=== PATIENT | female | born 1970 | race Two or more races ===

== ENCOUNTER 2021-07-29 11:08 | Emergency (ER) | payer SELFPAY ==
[~2021-07-29] VITALS: Ht 162.6 cm; Wt 79.5 kg
[2021-07-29] MEDS ORDERED: AMOXICILLIN/K CLAV 875/125MG TABLET. PO ONE (13:15)
[2021-07-29] MEDS ORDERED: TETRACAINE 0.5% OPHTH SOLUTION 4ML BOTTLE. OD ONE (13:15)
[2021-07-29] MEDS ORDERED: HYDROcodone/APAP 5/325MG 1 TAB TABLET PO ONE (13:15)
[2021-07-29] MEDS ORDERED: DIPH,PERTUSS(ACELL),TET VAC/PF 0.5 ML SYRINGE. VAX IM ONE (13:15)
[2021-07-29] MEDS ORDERED: FLUORESCEIN OPHTH TEST STRIP. OD ONE (13:15)
[2021-07-29] MEDS ORDERED: CONTRAST GIVEN. MC PRN (15:00)
[2021-07-29] MEDS ORDERED: IOHEXOL 300 MG/ML 100ML VIAL. IV ONE (15:00)
[2021-07-29 15:01] LABS: BASO # 0.1 x10^3/uL (0.0-0.2); BASO % 1 % (0-3); EOS # 0.1 x10^3/uL (0.0-0.7); EOS % 1 % (0-3); HEMATOCRIT 46.5 % (36.0-47.0); HEMOGLOBIN 15.7 g/dL (12.0-15.5); LYMPH # 2.6 x10^3/uL (1.0-4.8); LYMPH % 21 % (24-48); MEAN CORPUSCULAR HEMOGLOBIN 32 pg (25-35); MEAN CORPUSCULAR HGB CONC 34 g/dL (31-37); MEAN CORPUSCULAR VOLUME 94 fL (79-100); MONO # 0.5 x10^3/uL (0.0-1.1); MONO % 4 % (0-9); NEUT # 9.4 x10^3/uL (1.8-7.7); NEUT % 74 % (31-73); PLATELET COUNT 286 x10^3/uL (140-400); RED BLOOD COUNT 4.97 x10^6/uL (3.50-5.40); RED CELL DISTRIBUTION WIDTH 13.4 % (11.5-14.5); WHITE BLOOD COUNT 12.8 x10^3/uL (4.0-11.0)
[2021-07-29 15:17] LABS: CALCIUM 9.2 mg/dL (8.5-10.1); CREATININE 0.5 mg/dL (0.6-1.0); GFR 130.6; POTASSIUM 5.1 mmol/L (3.5-5.1)
[2021-07-29 15:28] LABS: ALBUMIN 4.4 g/dL (3.4-5.0); C-REACTIVE PROTEIN 7.3 mg/L (0-3.3); TOTAL BILIRUBIN 0.6 mg/dL (0.2-1.0); TOTAL PROTEIN 8.6 g/dL (6.4-8.2)
--- NOTE | 2021-07-29 16:02 | RAD ---
EXAM: CT maxillofacial bones without contrast INDICATION: Periorbital cellulitis with right facial mass COMPARISON: CT head 06/24/2021 TECHNIQUE: Axial CT imaging through the maxillofacial bones after administration of 70 mL Isovue-300 intravenous contrast. Sagittal and coronal reformats were obtained. One or more of the following individualized dose reduction techniques were utilized for this examinat ion: 1. Automated exposure control 2. Adjustment of the mA and/or kV according to patient size 3. Use of iterative reconstruction technique. FINDINGS: There is no acute fracture of the facial bones. Paranasal sinuses and mastoid air cells are clear. Te mporomandibular alignment is normal. There is a 1.4 x 1.4 cm hypodense mass with thin peripheral enha ncement at the medial right orbit involving the nasolacrimal duct, likely a dacryocystocele. This has increased in size from 06/24/2021 where it measured about 9 x 9 mm. The orbits are otherwise normal i n appearance. Globes are intact. Visualized intracranial contents are remarkable. Very mild right per iorbital soft tissue swelling. IMPRESSION: 1.4 x 1.4 cm hypodense mass with thin peripheral enhancement at the medial right orbit in volving the nasolacrimal duct. This was present on 06/24/2021 but has increased in size. This favors a n infected dacryocystocele. Electronically signed by: Sonja Phelan MD (07/29/2021 4:00 PM) [id number]
--- NOTE | 2021-07-29 16:08 | PHYS DOC ---
Past Medical History Past Surgical History: No Surgical History Smoking Status: Never Smoker Alcohol Use: None General Adult EDM: Chief Complaint: EYE PROBLEMS HPI: HPI: Patient is a 50-year-old patient complains of pain and swelling to the right eye for the past 2 days. Patient denies injury, states her right ear hurts as well, denies throat pain, nasal or chest congestion, denies chest pains. Denies recent fever or chills, denies nausea, vomiting, diarrhea. Patient reports some blurriness from her right eye. Patient reports her last tetanus immunization was greater than 5 years ago. Patient denies other illnesses or physical co mplaints or physical concerns. Patient states she does not take prescription medications at home. Patient denies allergies to medications. Review of Systems: Review of Systems: 14 body systems of review of systems have been reviewed. See HPI for pertinent positives and negative responses, otherwise all other systems are negative, nonpertinent or noncontributory. Constitutional: Negative except as outlined in HPI above. Skin: Negative except as outlined in HPI above. Eyes: Negative except as outlined in HPI above. HENT: Negative except as outlined in HPI above. Respiratory: Negative except as outlined in HPI above. Cardiovascular: Negative except as outlined in HPI above. GI: Negative except as outlined in HPI above. : Negative except as outlined in HPI above. Musculoskeletal: Negative except as outlined in HPI above. Integument: Negative except as outlined in HPI above. Neurologic: Negative except as outlined in HPI above. Endocrine: Negative except as outlined in HPI above. Lymphatic: Negative except as outlined in HPI above. Psychiatric: Negative except as outlined in HPI above. Heart Score: C/O Chest Pain: No Risk Factors: Risk Factors: DM, Current or recent (<one month) smoker, HTN, HLP, family history of CAD, obesity. Risk Scores: Score 0 - 3: 2.5% MACE over next 6 weeks - Discharge Home Score 4 - 6: 20.3% MACE over next 6 weeks - Admit for Clinical Observation Score 7 - 10: 72.7% MACE over next 6 weeks - Early Invasive Strategies Current Medications: Current Medications Medications (Trade) Dose Ordered Sig/Thad Start Time Stop Time Status Last Admin Dose Admin Acetaminophen/ Hydrocodone Bitart (Lortab 5/325) 2 tab 1X ONCE 07/29/21 13:15 07/29/21 13:29 DC 07/29/21 13:44 2 TAB Amoxicillin/ Clavulanate Potassium (Augmentin 875/ 125mg) 1 tab 1X ONCE 07/29/21 13:15 07/29/21 13:29 DC 07/29/21 13:43 1 TAB Diphtheria/ Tetanus/Acell Pertussis (ADACEL TDap SYRINGE) 0.5 ml ONCE ONCE 07/29/21 13:15 07/29/21 13:29 DC 07/29/21 13:15 0.5 ML Fluorescein Sodium (Ful-Peyton) 1 strip 1X ONCE 07/29/21 13:15 07/29/21 13:29 DC Info (CONTRAST GIVEN -- Rx MONITORING) 1 each PRN DAILY PRN 07/29/21 15:00 07/31/21 14:59 Iohexol (Omnipaque 300 Mg/ml) 70 ml 1X ONCE 07/29/21 15:00 07/29/21 15:01 DC 07/29/21 15:35 70 ML Tetracaine HCl (Tetracaine) 1 drop 1X ONCE 07/29/21 13:15 07/29/21 13:29 DC Allergies: Allergies: Allergies Coded Allergies Type Severity Reaction Last Updated Verified No Known Drug Allergies 07/29/21 No Physical Exam: PE: Constitutional: Well developed, well nourished, no acute distress, non-toxic appearance. 50-year-old female tearful during exam. HENT: Normocephalic, atraumatic. No lymphadenopathy of the head or neck appreciated, left TM within normal limits intact, right TM bulging with white opacity, unable to cruciate bony landmarks, no drainage from auditory canals, no deep tissue infectious process appreciated, periorbital edema of the right orbit, mild erythematous conjunctivitis of the upper and lower lid, 1.5 cm hard nodule near nasal bridge to this medial to medial canthus of right eye. No drainage from nasal turbinates. Eyes: No discharge, mild upper and lower lid erythema conjunctivitis, PERRLA. Fluorescein eye exam no abnormalities, positive red light reflex bilaterally, intraocular pressure of right eye 15, of left eye 13. Visual acuity OD 20/25, OS 20/25, OU 20/20. Patient does not wear corrective lenses. Neck: Normal range of motion, no stridor. Cardiovascular: No cyanosis appreciated, distal cap refill less than 2 seconds. Lungs & Thorax: Patient is in no respiratory distress, no audible adventitious lung sounds appreciated. Abdomen: Nontender, no abnormalities noted. Skin: Warm, dry, no erythema, no rash. Back: No tenderness, no deformities. Extremities: No tenderness, no cyanosis, no clubbing, ROM intact, no edema. Neurologic: Alert and oriented X 3, normal motor function, normal sensory function, no focal deficits noted. Psychologic: Affect normal, judgement normal, mood normal. Current Patient Data: Labs: Laboratory Tests Test 07/29/21 14:50 White Blood Count 12.8 x10^3/uL (4.0-11.0) H Red Blood Count 4.97 x10^6/uL (3.50-5.40) Hemoglobin 15.7 g/dL (12.0-15.5) H Hematocrit 46.5 % (36.0-47.0) Mean Corpuscular Volume 94 fL (79-100) Mean Corpuscular Hemoglobin 32 pg (25-35) Mean Corpuscular Hemoglobin Concent 34 g/dL (31-37) Red Cell Distribution Width 13.4 % (11.5-14.5) Platelet Count 286 x10^3/uL (140-400) Neutrophils (%) (Auto) 74 % (31-73) H Lymphocytes (%) (Auto) 21 % (24-48) L Monocytes (%) (Auto) 4 % (0-9) Eosinophils (%) (Auto) 1 % (0-3) Basophils (%) (Auto) 1 % (0-3) Neutrophils # (Auto) 9.4 x10^3/uL (1.8-7.7) H Lymphocytes # (Auto) 2.6 x10^3/uL (1.0-4.8) Monocytes # (Auto) 0.5 x10^3/uL (0.0-1.1) Eosinophils # (Auto) 0.1 x10^3/uL (0.0-0.7) Basophils # (Auto) 0.1 x10^3/uL (0.0-0.2) Erythrocyte Sedimentation Rate 10 (0-25) Sodium Level 137 mmol/L (136-145) Potassium Level 5.1 mmol/L (3.5-5.1) Chloride Level 100 mmol/L (98-107) Carbon Dioxide Level 28 mmol/L (21-32) Anion Gap 9 (6-14) Blood Urea Nitrogen 18 mg/dL (7-20) Creatinine 0.5 mg/dL (0.6-1.0) L Estimated GFR (Cockcroft-Gault) 130.6 BUN/Creatinine Ratio 36 (6-20) H Glucose Level 131 mg/dL (70-99) H Lactic Acid Level 1.4 mmol/L (0.4-2.0) Calcium Level 9.2 mg/dL (8.5-10.1) Total Bilirubin 0.6 mg/dL (0.2-1.0) Aspartate Amino Transferase (AST) 36 U/L (15-37) Alanine Aminotransferase (ALT) 34 U/L (14-59) Alkaline Phosphatase 79 U/L (46-116) C-Reactive Protein, Quantitative 7.3 mg/L (0-3.3) H Total Protein 8.6 g/dL (6.4-8.2) H Albumin 4.4 g/dL (3.4-5.0) Albumin/Globulin Ratio 1.0 (1.0-1.7) Laboratory Tests 07/29/21 14:50 Laboratory Tests 07/29/21 14:50 Vital Signs: Vital Signs Date Time Temp Pulse Resp B/P (MAP) Pulse Ox O2 Delivery O2 Flow Rate FiO2 07/29/21 13:51 89 18 160/99 (119) 07/29/21 12:34 97.9 98 97.9 EKG: EKG: [] Radiology/Procedures: Radiology/Procedures: PATIENT: GENESIS WHITMORECOUNT: [id number] : 1970 LOCATION: ER AGE: 50 SEX: F EXAM STATUS: REG ER ORD. PHYSICIAN: OH DEVRIES APRN REASON: Periorbital cellulitis right with facial mass PROCEDURE: CT MAXILLOFACIAL W/CONTRAST EXAM: CT maxillofacial bones without contrast INDICATION: Periorbital cellulitis with right facial mass COMPARISON: CT head 06/24/2021 TECHNIQUE: Axial CT imaging through the maxillofacial bones after administration of 70 mL Isovue-300 intravenous contrast. Sagittal and coronal reformats were o btained. One or more of the following individualized dose reduction techniques were utilized for this examination: 1. Automated exposure control 2. Adjustment of the mA and/or kV according to patient size 3. Use of iterative reconstruction technique. FINDINGS: There is no acute fracture of the facial bones. Paranasal sinuses and mastoid air cells are clear. Temporomandibular alignment is normal. There is a 1.4 x 1.4 cm hypodense mass with thin peripheral enhancement at the medial right orbit involving the nasolacrimal duct, likely a dacryocystocele. This has increased in size from 06/24/2021 where it measured about 9 x 9 mm. The orbits are otherwise normal in appearance. Globes are intact. Visualized intracranial contents are remarkable. Very mild right periorbital soft tissue swelling. IMPRESSION: 1.4 x 1.4 cm hypodense mass with thin peripheral enhancement at the medial right orbit involving the nasolacrimal duct. This was present on 06/24/2021 but has increased in size. This favors an infected dacryocystocele. Electronically signed by: Sonja Phelan MD (07/29/2021 4:00 PM) [id number] Course & Med Decision Making: Course & Med Decision Making Pertinent Labs and Imaging studies reviewed. (See chart for details) 50-year-old female, vital signs reviewed, presents emergency department concerning painful inflammation around right eye for the past 2 days. Physical examination consistent with dacryocystitis. Will order labs, bring patient's tetanus immunization up-to-date today in the emergency department with Adacel/Tdap, maxillofacial CT with contrast attention orbits. Will give pain medication, fluorescein eye exam. Patient started on Augmentin. CT concerning for dacryocystitis, called and discussed patient case with [facility] ophthalmology group spoke with Dr. Claude Laird who recommends keeping patient on Augmentin regimen for 10 days, does not recommend erythromycin eye ointment or eyedrops, recommends warm compresses to eye several times a day, strict follow-up in his office tomorrow. Discussed Dr. Claude Laird recommendations with patient, gave patient office information for appointment tomorrow, will send patient's Augmentin regimen to pharmacy of choice, pain medications, reviewed side effects of prescribed medications, patient is amenable to ED discharge planning. Discussed with the patient all findings and diagnostic testing as well as the need to follow-up with their primary care provider for further evaluation and treatment or return to the ED if any new or worsening symptoms. Strict return precautions were also discussed at length, the patient voiced understanding and agreement with the discharge planning. The patient was nontoxic in appearance, in no apparent distress, and hemodynamically stable at the time of disposition. Dragon Disclaimer: Dragon Disclaimer: This electronic medical record was generated, in whole or in part, using a voice recognition dictation system. Departure Departure Impression: Primary Impression: Dacryocystitis of right lacrimal sac Disposition: HOME / SELF CARE / HOMELESS Referrals: NO PCP (PCP) Rianna STIENBERG MD Patient Instructions: Dacryocystitis Additional Instructions: You were seen today in the emergency department for an infection to the lacrimal duct of your eye. This is infected and requires an antibiotic that you started today in the emergency department. I have sent the antibiotic prescription to your pharmacy, please start tomorrow morning you will take this twice a day for the next 10 days. I have also prescribed for you pain medications to help minimize the pain. Please apply warm compresses such as hand towels soaked in very warm water to your affected eye to help minimize swelling and discomfort. Please call tomorrow morning for an appointment with the eye doctor Dr. Steinberg to help with this eye infection. This is a must. Please return to the emergency department for worsening symptoms or other concerns. Thank you for visiting our Emergency Department. It was a pleasure taking care of you t mamie in the emergency department and we appreciate you trusting us with your care. If any additional problems come up don't hesitate to return to visit us. Please follow up with your primary care provider so they can plan additional care if needed and know about the problem that you had. If symptoms worsen come back to the Emergency Department. Any concerning symptoms that start such as chest pain, shortness of air, weakness or numbness on one side of the body, running high fevers or any other concerning symptoms return to the ER. Thank you for visiting our Emergency Department. It was a pleasure taking care of you today in the emergency department and we appreciate you trusting us with your care. If any additional problems come up don't hesitate to return to visit us. Please follow up with your primary care provider so they can plan additional care if needed and know about the problem that you had. If symptoms worsen come back to the Emergency Department. Any concerning symptoms that start such as chest pain, shortness of air, weakness or numbness on one side of the body, running high fevers or any other concerning symptoms return to the ER. Hoy lo vieron en el departamento de emergencias por arash infeccin en el conducto lagrimal del zach. [place] est infectado y requiere un antibitico que comenz hoy en el departamento de emergencias. He enviado la receta de antibiticos a francis farmacia, comience maana por la maana y aysha esto dos veces al da marjan los prximos 10 pablo. Tamdaisha le he recetado analgsicos para ayudar a minimizar el dolor. Aplique compresas tibias, sylvester toallas de mano empapadas en agua muy tibia, en el zach afectado para ayudar a minimizar la hinchazn y el malestar. Llame maana por la maana para programar arash adan con el oculista Dr. Steinberg para que le ayude con esta infeccin ocular. Es un requisito. Regrese al departamento de emergencias si los sntomas empeoran u otras inquietudes. [place] por visitar nuestro Departamento de Emergencias. Fue un placer atenderlo hoy en el departamento de emergencias y le agradecemos que nos haya confiado francis atencin. Si surge algn problema adicional, no dude en volver a visitarnos. [place] un seguimiento con francis proveedor de atencin primaria para que puedan planificar atencin adicional si es necesario y conocer el problema que tuvo. Si los sntomas empeoran, regrese al Departamento de Emergencias. Cualquier sntoma preocupante que comience, sylvester dolor en el pecho, falta de aire, debilidad o entumecimiento en un lado del cuerpo, fiebre gisela o cualquier otro sntoma preocupante, regresa a la tatyana de emergencias. Sangeeta por visitar nuestro Departamento de Emergencias. Fue un placer atenderlo hoy en el departamento de emergencias y le agradecemos que nos haya confiado francis atencin. Si surge algn problema adicional, no dude en volver a visitarnos. [place] un seguimiento con francis proveedor de atencin primaria para que puedan planificar atencin adicional si es necesario y conocer el problema que tuvo. Si los sntomas empeoran, regrese al Departamento de Emergencias. Cualquier sntoma preocupante que comience, sylvester dolor en el pecho, falta de aire, debilidad o entumecimiento en un lado del cuerpo, fiebre gisela o cualquier otro sntoma preocupante, regresa a la tatyana de emergencias. EMERGENCY DEPARTMENT GENERAL DISCHARGE INSTRUCTIONS Thank you for coming to [facility] Emergency Department (ED) today and trusting us with you care. We trust that you had a positive experience in our Emergency Department. If you wish to speak to the department management, you may call the Director at [phone]. YOUR FOLLOW UP INSTRUCTIONS ARE FOLLOWS: 1. Do you have a private Doctor? If you do not have a private doctor, please ask for a resource list of physicians or clinics that may be able to assist you with follow up care. 2. The Emergency Physicain has interpreted your x-rays. The X-Ray specialist will also review them. If there is a change in the findings, you will be notified in 48 hours when at all possible. 3. A lab test or culture has been done, your results will be reviewed and you will be notified if you need a change in treatment. ADDITIONAL INSTRUCTIONS AND INFORMATION: 1. Your care today has been supervised by a physician who is specially trained in emergency care. Many problems require more than one evaluation for a complete diagnosis and treatment. We recommend that you schedule your follow up appointment as recommended to ensure complete treatment of you illness or injury. If you are unable to obtain follow up care and continue to have a problem, or if your condition worsens, we recommend that you return to the ED. 2. We are not able to safely determine your condition over the phone nor are we able to give sound medical advice over the phone. For these safety reasons, if you call for medical advice we will ask you to come to the ED for further evaluation. 3. If you have any questions regarding these discharge instructions please call the ED at [phone]. SAFETY INFORMATION: In the interest of safety, wellness, and injury prevention; we encourage you to wear your sealbelt, if you smoke; quite smoking, and we encourage family to use a protective helmet for bicycling and other sporting events that present an increased risk for head injury. IF YOUR SYMPTOMS WORSEN OR NEW SYMPTOMS DEVELOP, OR YOU HAVE CONCERNS ABOUT YOUR CONDITION; OR IF YOUR CONDITION WORSENS WHILE YOU ARE WAITING FOR YOUR FOLLOW UP APPOINTMENT; EITHER CONTACT YOUR PRIMARY CARE DOCTOR, THE PHYSICIAN WHOSE NAME AND NUMBER YOU WERE GIVEN, OR RETURN TO THE ED IMMEDIATELY. Scripts Hydrocodone Bit/Acetaminophen (HYDROCODONE-APAP 5-325 ) 1 Tab Tablet 1 TAB PO PRN Q6HRS PRN for PAIN, #10 TAB 0 Refills Prov: OH DEVRIES APRN 07/29/21 Ibuprofen (IBUPROFEN) 600 Mg Tablet 600 MG PO PRN Q6HRS PRN for INFLAMMATION, #30 TAB 0 Refills Prov: OH DEVRIES APRN 07/29/21 Amoxicillin/Potassium Clav (AUGMENTIN 875-125 TABLET) 1 Each Tablet 1 TAB PO BID for eye infection for 10 Days, #20 TAB 0 Refills Prov: OH DEVRIES [employer] 07/29/21 OH DEVRIES APRN Jul 29, 2021 16:08
[2021-07-29] MEDS ORDERED: fentaNYL PF VIAL 100 MCG/2 ML VIAL IVP ONE (17:15)
[2021-07-29] MEDS ORDERED: HYDR-2761 PO (17:52)
[2021-07-29] MEDS ORDERED: IBUP-1007 PO (17:52)
[2021-07-29] MEDS ORDERED: AMOX1TAB61 PO (17:52)
[2021-07-29 17:56] VITALS: BP 134/87
== END 2021-07-29 18:07 | disposition home or self-care (01) ==
LOC: ER 11:08
DX: H04.301 Unspecified dacryocystitis of right lacrimal passage (principal)
CPT/HCPCS: 36415; 70487; 80053; 83605; 85025; 85651; 86140; 87040; 90471; 90715; 96374; 99285; J3010; Q9967